=== PATIENT | female | born 1960 | race Two or more races ===

== ENCOUNTER 2020-06-05 11:35 | Outpatient (CLI) | payer OTHER | END 2020-06-05 11:41 | disposition home or self-care (01) | LOC: SONOGRAMA 11:35 | PROVIDERS: ATTEND Pathology Anatomic Pathology & Clinical Pathology | DX: E04.2 Nontoxic multinodular goiter (principal); D34 Benign neoplasm of thyroid gland; E06.5 Other chronic thyroiditis; E04.8 Other specified nontoxic goiter ==